=== PATIENT | female | born 1955 | race African-American/Black ===

== ENCOUNTER → 2018-09-27 | Day surgery (SDC) | payer OTHER ==
[~2018-09-27] MED LIST: IV RINGERS,LACTATED 1000ML 1,000 ML IV SCH; LIDOCAINE 1% PF 2 ML VIAL. ID PRN; LIDOCAINE 2% PF 5 ML VIAL. ONE; MIDAZOLAM HCL/PF 2 MG/2 ML VIAL. IV PRN; PROPOFOL 20 ML IV ONE; fentaNYL PF VIAL 100 MCG/2 ML VIAL IV PRN
[2018-09-27 08:16] VITALS: BP 126/60
== END ==
LOC: SURG 06:31
PROVIDERS: ATTEND Internal Medicine Gastroenterology
DX: Z12.11 Encounter for screening for malignant neoplasm of colon (principal); K64.0 First degree hemorrhoids; K63.89 Other specified diseases of intestine; F15.90 Other stimulant use, unspecified, uncomplicated; Z91.041 Radiographic dye allergy status; Z72.89 Other problems related to lifestyle
CPT/HCPCS: 45378; J2001; J2704

== ENCOUNTER → 2020-12-10 | Outpatient (CLI) | payer MEDICARE ==
[2018-09-27 08:16] VITALS: BP 126/60
--- NOTE | 2020-12-10 09:35 | KCIC ---
PQRS Compliance Statement: One or more of the following individualized dose reduction techniques were utilized for this examinat ion: 1. Automated exposure control 2. Adjustment of the mA and/or kV according to patient size 3. Use of iterative reconstruction technique CT LOW DOSE LUNG SCREEN 12/10/2020 8:29 AM Indication: Nicotine dependence. Smoker for 40+ years COMPARISON: None available. TECHNIQUE: Multiple axial CT images of the chest were obtained without intravenous contrast utilizing low-dose technique. Coronal and sagittal reformats are provided. FINDINGS: There are no pathologically enlarged axillary, mediastinal or hilar lymph nodes. Calcified mediastina l and left hilar lymph nodes are present. This favors sequela prior granulomatous exposure. Heart siz e is within normal limits. Thoracic aorta is normal in course and caliber. There is no significant pe ricardial effusion. Thoracic esophagus is normal in appearance. Anterior chest wall appears intact. There is a 4 mm solid noncalcified pulmonary nodule in the lateral posterior left upper lobe (series 6, image 121). Scattered calcified granulomas are present. Bronchial wall thickening compatible with nonspecific bronchitis. There are no pleural effusions, pulmonary vascular congestion or pneumothorax . Lungs are clear without focal airspace consolidation. Central airways are clear. Visualized portions of the upper abdomen are normal in appearance within limitations of a noncontrast examination. No suspicious osseous abnormality. No paraspinal soft tissue mass. IMPRESSION: 4 mm solid noncalcified pulmonary nodule identified in the lateral posterior left upper lobe. Lung RA DS category 2, benign appearance or behavior. Recommend low-dose chest CT in one year. Mild bronchial wall thickening compatible with nonspecific bronchitis. Electronically signed by: Dawna Morocho MD (12/10/2020 9:32 AM) [facility]
== END ==
LOC: KCIC CT 08:24
PROVIDERS: ATTEND Family Medicine
DX: Z12.2 Encounter for screening for malignant neoplasm of respiratory organs (principal); R91.1 Solitary pulmonary nodule; F17.210 Nicotine dependence, cigarettes, uncomplicated; R59.0 Localized enlarged lymph nodes
CPT/HCPCS: 71271